=== PATIENT | male | born 1990 | race Caucasian/White ===

== ENCOUNTER 2017-10-11 08:08 | Emergency (ER) | payer OTHER, BC ==
[2017-10-11 09:05] LABS: EOSINOPHIL (%) 0.9 % (0-5); EOSINOPHIL COUNT 0.1 K/uL (0-0.3); HEMATOCRIT 47.2 % (38.0-50.0); IMMATURE GRANULOCYTE (%) 0.4 % (0.0-0.7); INSTRUMENT ABS NEUTROPHIL CT 5.7 K/uL; MCH 27.7 PG (29.0-34.0); MCV 86.4 FL (86-99); MONOCYTE (%) 7.6 % (3-12); MONOCYTE COUNT 0.7 K/uL (0-0.8); NEUTROPHIL (%) 59.8 % (45-76); NEUTROPHIL COUNT 5.7 K/uL (1.8-6.4); RBC DIS.WIDTH-CV 13.1 % (11.8-14.6); RBC DIS.WIDTH-SD 40.6 % (39-53); RED BLOOD COUNT 5.46 M/uL (4.00-5.50); WHITE BLOOD COUNT 9.6 K/uL (4.1-10.2)
[2017-10-11 09:14] LABS: AMYLASE 25 IU/L (1-118); CHLORIDE 109 mEq/L (99-109); SODIUM 139 mEq/L (136-147)
[2017-10-11 09:15] LABS: GLUCOSE 96 mg/dL (70-99)
[2017-10-11 09:17] LABS: ANION GAP 12 MEQ/L (2-14)
[2017-10-11 09:19] LABS: SERUM ETHYL ALCOHOL < 10 mg/dL
[2017-10-11 09:20] LABS: UREA NITROGEN (BUN) 24 mg/dL (9-23)
[2017-10-11 09:22] LABS: LIPASE 20 U/L (1.0-51.0)
[2017-10-11 09:23] LABS: GFR ESTIMATE (CALCULATED) > 59 mL/min/ (58.99-99999)
[2017-10-11 09:57] LABS: ADD MIUA? YES; BILIRUBIN NEGATIVE; BLOOD SMALL; COLOR YELLOW ((YELLOW)); GLUCOSE (STRIP) NEGATIVE; KETONES NEGATIVE; LEUKOCYTES NEGATIVE; NITRITE NEGATIVE; PROTEIN (STRIP) NEGATIVE; UROBILINOGEN 0.2 MG/DL (0.2-1.0)
[2017-10-11 10:06] LABS: AMPHETAMINE NEGATIVE (500 ng/mL); BARBITURATES NEGATIVE (200 ng/mL); BENZODIAZEPINES NEGATIVE (150 ng/mL); COCAINE NEGATIVE (150 ng/mL); INTERNAL CONTROLS VALID? YES; METHADONE NEGATIVE (200 ng/mL); METHAMPHETAMINE NEGATIVE (500 ng/mL); OPIATES (MORPHINE) PRESUMPTIVE POSITIVE (100 ng/mL); OXYCODONE NEGATIVE (100 ng/mL); PHENCYCLIDINE NEGATIVE (25 ng/mL); PROPOXYPHENE NEGATIVE (300 ng/mL); THC CANNABINOIDS NEGATIVE (50 ng/mL); TRICYCLIC ANTIDEPRESSANTS NEGATIVE (300 ng/mL)
[2017-10-11 10:07] LABS: ADD MEDTOX COMMENT Y; BACTERIA NONE SEEN /HPF; EPITHELIAL CELLS RARE /HPF; MUCUS TRACE /LPF; UCUL ADDED? NO; WHITE BLOOD CELLS 0-5 /HPF (0-5)
[2017-10-11 10:11] LABS: MEAN PLAT.VOLUME 12.9 uM^3 (9.0-12.4); PLAT.SUFFICIENCY DECREASED; PLATELET COUNT 87 K/uL (156-360)
== END 2017-10-11 11:52 | disposition home or self-care (01) ==
LOC: TRA 08:08 → EME 08:08 → TRA 11:52
PROVIDERS: Emergency Medicine
DX: M25.521 Pain in right elbow (principal); M79.604 Pain in right leg; M79.605 Pain in left leg; R07.9 Chest pain, unspecified; V49.10XA Passenger injured in collision with unspecified motor vehicles in nontraffic accident, initial encounter; Y92.411 Interstate highway as the place of occurrence of the external cause
CPT/HCPCS: 70450; 71260; 72125; 72129; 72132; 73060; 73090; 73130; 73590; 73630; 74177; 80048; 81003; 82150; 83690; 84999; 85025; 86850; 86900; 86901; 99281; 99285; G0480; J2270